=== PATIENT | male | born 1955 | race Caucasian/White ===

== ENCOUNTER 2017-07-10 10:27 | Inpatient (IN) | payer MEDICARE ==
[~2017-07-10] VITALS: Ht 190.5 cm; Wt 120.7 kg
[~2017-07-10 10:27] MED LIST: ALBU6.7H INH; CLON0.1T PO; LEVA750T9 PO; METF1000 PO
[2017-07-10] MEDS ORDERED: RESP: ALBUTEROL 2.5 MG/IPRATROPIUM 0.5 MG NEB (PRN) NEB ×2 (13:30→17:00)
[2017-07-10] MEDS ORDERED: GLUCAGON 1 MG/ML VIAL OTHER PRN (13:30)
[2017-07-10] MEDS ORDERED: DEXTROSE 50% IN WATER 50 ML VIAL(D50) IV PUSH PRN (13:30)
[2017-07-10] MEDS ORDERED: cloNIDine HCL 0.1 MG TAB PO PRN (13:30)
[2017-07-10] MEDS ORDERED: SODIUM CHLORIDE 0.9% FLUSH 10 ML FLUSH IV FLUSH PRN (13:30)
[2017-07-10] MEDS ORDERED: LABETALOL HCL 100 MG/20 ML VIAL IV PUSH PRN (13:30)
[2017-07-10 14:00] VITALS: BP 185/105; PULSE 80; RESP 19; TEMP 98.3; O2SAT 99
[2017-07-10] MEDS: amLODIPine BESYLATE 5 MG TAB PO SCH (14:02)
[2017-07-10 15:31] LABS: TROPONIN I 0.02 NG/ML (0.02-0.05)
[2017-07-10 16:00] VITALS: BP 183/88; PULSE 80; RESP 19; TEMP 97.9; O2SAT 99
[2017-07-10 16:00] LABS: BILIRUBIN, URINE NEG (NEG); BLOOD, URINE NEG (NEG); GLUCOSE,URINE NEG (NEG); KETONE, URINE NEG (NEG); NITRITE,URINE NEG (NEG); URINE COLOR LIGHT-YELLOW (YELLW/STRAW); URINE LEUKOCYTE ESTERASE NEG (NEG)
[2017-07-10] MEDS: RESP: ALBUTEROL 2.5 MG/IPRATROPIUM 0.5 MG NEB (SCH) NEB (16:00)
[2017-07-10 16:15] VITALS: O2SAT 96
[2017-07-10] MEDS ORDERED: MORPHINE SULFATE 4 MG/ML INJ IV PUSH PRN ×2 (16:45)
[2017-07-10] MEDS ORDERED: hydrALAZINE HCL 20 MG/ML VIAL IV PUSH PRN (16:45)
--- NOTE | 2017-07-10 16:45 | HHI.HP ---
[facility] Service [facility] Primary Care Physician No Primary Care Physician Admission Diagnosis Diagnoses: Chief Complaint: Short of breath chest tightness Travel History International Travel<30 Days: No Contact w/Intl Traveler <30 Da: No History of Present Illness 62 years old man with history of hypertension diabetes mellitus coronary artery disease he has a pacer, presented to the ED complaining of worsening short of breath. In general patient is very poor historian as far as explaining his complaint, to me he denied chest pain fever or cough, however in the ED notes he reported coughing and chest tightness. Patient reported to me positive orthopnea and PND significantly he does have leg edema +1. He also complained of bloated abdomen. Patient smoked 2 cigars a day and about 16 beers a week,. He stated. He he stated few days ago he went to the urgent care due to some left back pain in his chest area chest pain goes to the back which he thought it is pneumonia because he had a in the past. Patient was prescribed Z-Marshall and he thinks since that time his short of breath started getting worse, patient reported being compliant with no salt diet and his medication however I am not quite sure how reliable is his story. 4 days ago patient came to the ED and he was diagnosed with pneumonia and started on Levaquin nebulizer but this did not help Review of Systems All systems reviewed and was positive for what is mentioned in history of present illness otherwise negative Past Family Social History Past Medical History Cardiac rhythm disorder on pacer Hypertension Diabetes mellitus History of cardiac catheterization without stenting, Hepatitis C Past Surgical History Pacemaker Allergies: Coded Allergies: No Known Allergies (Unverified , 07/10/17) Family History Mother and father had strokes Social History He smokes 2 cigars a day and drinks 16 beers a week no drugs abuse Physical Exam Vital Signs Vital Signs Date Time Temp Pulse Resp B/P (MAP) Pulse Ox O2 Delivery O2 Flow Rate FiO2 07/10/17 16:15 96 Nasal Cannula 2.00 07/10/17 13:15 Nasal Cannula 2.00 Physical Exam GENERAL: This is a well-nourished, well-developed patient, in no apparent distress. SKIN: No rashes, warm and dry HEAD: Atraumatic. Normocephalic. EYES: Pupils equal round and reactive. Extraocular motions intact. No scleral icterus. ENT: Nose without bleeding, or drainage, Airway patent. NECK: Trachea midline. Supple CARDIOVASCULAR: Regular rate and rhythm without murmurs, gallops, or rubs. RESPIRATORY: Bibasilar crackles with minimal wheezing GASTROINTESTINAL: Abdomen soft, non-tender, nondistended. Positive bowel sounds MUSCULOSKELETAL: Extremities without clubbing, cyanosis, +1 edema. Pedal pulses appreciated NEUROLOGICAL: Awake and alert. Moves all extremity. Normal speech.no focal neurological deficit Laboratory Laboratory Tests Test 07/10/17 14:49 07/10/17 15:05 Total Creatine Kinase 174 Troponin I 0.02 Urine Color LIGHT-YELLOW Urine Turbidity CLEAR Urine pH 7.0 Urine Specific [place] 1.006 Urine Protein NEG Urine Glucose (UA) NEG Urine Ketones NEG Urine Occult Blood NEG Urine Nitrite NEG Urine Bilirubin NEG Urine Urobilinogen LESS THAN 2.0 Urine Leukocyte Esterase NEG Microscopic Urinalysis Comment CULT NOT INDICATED Imaging Chest x-ray showed bibasilar prominence interstitial lung edema without infiltrate Caprini VTE Risk Assessment Caprini VTE Risk Assessment: Mod/High Risk (score >= 2) Caprini Risk Assessment Model Point Value = 1 Point Value = 2 Point Value = 3 Point Value = 5 Age 41-60 Minor surgery BMI > 25 kg/m2 Swollen legs Varicose veins or History of unexplained or recurrent spontaneous Oral contraceptives or hormone replacement Sepsis (< 1 month) Serious lung disease, including pneumonia (< 1 month) Abnormal pulmonary function Acute myocardial infarction Congestive heart failure (< 1 month) History of inflammatory bowel disease Medical patient at bed rest Age 61-74 Arthroscopic surgery Major open surgery (> 45 min) Laparoscopic surgery (> 45 min) Malignancy Confined to bed (> 72 hours) Immobilizing plaster cast Central venous access Age >= 75 History of VTE Family history of VTE Factor V Leiden Prothrombin [id number] Lupus anticoagulant Anticardiolipin antibodies Elevated serum homocysteine Heparin-induced thrombocytopenia Other congenital or acquired thrombophilia Stroke (< 1 month) Elective arthroplasty Hip, pelvis, or leg fracture Acute spinal cord injury (< 1 month) Prophylaxis Regimen Total Risk Factor Score Risk Level Prophylaxis Regimen 0-1 Low Early ambulation 2 Moderate Order ONE of the following: *Sequential Compression Device (SCD) *Heparin 5000 units SQ BID 3-4 Higher Order ONE of the following medications: *Heparin 5000 units SQ TID *Enoxaparin/Lovenox 40 mg SQ daily (WT < 150 kg, CrCl > 30 mL/min) *Enoxaparin/Lovenox 30 mg SQ daily (WT < 150 kg, CrCl > 10-29 mL/min) *Enoxaparin/Lovenox 30 mg SQ BID (WT < 150 kg, CrCl > 30 mL/min) AND/OR *Sequential Compression Device (SCD) 5 or more Highest Order ONE of the following medications: *Heparin 5000 units SQ TID (Preferred with Epidurals) *Enoxaparin/Lovenox 40 mg SQ daily (WT < 150 kg, CrCl > 30 mL/min) *Enoxaparin/Lovenox 30 mg SQ daily (WT < 150 kg, CrCl > 10-29 mL/min) *Enoxaparin/Lovenox 30 mg SQ BID (WT < 150 kg, CrCl > 30 mL/min) AND *Sequential Compression Device (SCD) Assessment and Plan Assessment and Plan 62 years old male admitted with Hypertensive emergency 214/113 Flash pulmonary edema Signs of congestive heart failure, with lung edema and thick swelling History of hypertension uncontrolled Diabetes mellitus type 2 GERTRUDE with creatinine 1.4, Elevated BNP 324 Thrombocytopenia DVT prophylaxis Plan: Admit to telemetry floor inpatient First set of cardiac enzyme negative personally reviewed by me continue cycling another 2 sets EKG reviewed by me "paced rhythm "repeat EKG with any chest pain Patient was given nitroglycerin in ED, will place on Vasotec and add hydralazine , labetalol IV as needed, clonidine p.o. as needed to keep blood pressure under 170/100, goal is to decrease blood pressure 25% over 24 hours hours, last one per the nurse 183/85 02, DuoNeb, morphine Monitor FRED and daily awaiting repeat BMP in a.m. avoid nephrotoxin Lasix IV twice daily, 2D echo Accu-Chek with insulin sliding scale, diabetic diet Consider cardiology consultation for ischemic workup depending on 2D echo Heparin for DVT prophylaxis Discussed Condition With Patient in ED physician Physician Certification 2 Midnight Certification Type: Admission for Inpatient Services Order for Inpatient Services The services are ordered in accordance with Medicare regulations or non- Medicare payer requirements, as applicable. In the case of services not specified as inpatient-only, they are appropriately provided as inpatient services in accordance with the 2-midnight benchmark. Estimated LOS (days): 2 days is the estimated time the patient will need to remain in the hospital, assuming treatment plan goals are met and no additional complications. Post-Hospital Plan: Not yet determined Black Duque MD July 10, 2017 16:45
[2017-07-10] MEDS: INSULIN ASPART SUPPLEMENTAL SCALE SQ SCH ×2 (17:00→20:54)
[2017-07-10] MEDS ORDERED: ACETAMINOPHEN 325 MG TAB PO PRN (17:15)
[2017-07-10] MEDS: FUROSEMIDE 40 MG/4 ML VIAL IV PUSH SCH (17:16)
[2017-07-10 18:00] VITALS: PULSE 80
[2017-07-10 20:00] VITALS: BP 152/83; PULSE 80; RESP 18; TEMP 98; O2SAT 96
[2017-07-10] MEDS ORDERED: RESP: ALBUTEROL 2.5 MG/IPRATROPIUM 0.5 MG NEB (SCH) NEB (20:00)
[2017-07-10 20:46] LABS: TROPONIN I LESS THAN 0.02 NG/ML (0.02-0.05)
[2017-07-10] MEDS: SODIUM CHLORIDE 0.9% FLUSH 10 ML FLUSH IV FLUSH SCH (20:53)
[2017-07-11] VITALS (8 sets, daily range): BP systolic 140–158; BP diastolic 78–96; PULSE 79–84; RESP 18–19; TEMP 97.4–97.8; O2SAT 93–98
[2017-07-11] MEDS ORDERED: ACETAMINOPHEN 325 MG TAB PO ONE (01:15)
[2017-07-11 05:20] LABS: BASOPHIL % 0.6 % (0.0-2.0); EOSINOPHIL # 0.1 TH/MM3 (0-0.4); EOSINOPHIL % 1.6 % (0.0-4.0); HEMOGLOBIN 15.2 GM/DL (13.0-17.0); LYMPH % 22.9 % (9.0-44.0); LYMPHOCYTE # 1.4 TH/MM3 (1.0-4.8); MEAN CORPUSCULAR HEMOGLOBIN 31.4 PG (27.0-34.0); MEAN CORPUSCULAR HGB CONC 34.5 % (32.0-36.0); MONO % 10.4 % (0.0-8.0); MONOCYTE # 0.7 TH/MM3 (0-0.9); NEUT % 64.5 % (16.0-70.0); PLATELET COUNT 154 TH/MM3 (150-450); RED BLOOD COUNT 4.83 MIL/MM3 (4.50-5.90); RED CELL DISTRIBUTION WIDTH 13.5 % (11.6-17.2); WHITE BLOOD COUNT 6.3 TH/MM3 (4.0-11.0)
[2017-07-11 05:46] LABS: BICARBONATE 27.7 MEQ/L (21.0-32.0); CALCIUM 8.8 MG/DL (8.5-10.1); CREATININE 1.32 MG/DL (0.60-1.30)
[2017-07-11 05:48] LABS: HDL CHOLESTEROL 52.3 MG/DL (40.0-60.0)
[2017-07-11] MEDS: RESP: ALBUTEROL 2.5 MG/IPRATROPIUM 0.5 MG NEB (SCH) NEB (07:41)
[2017-07-11] MEDS: INSULIN ASPART SUPPLEMENTAL SCALE SQ SCH ×4 (08:00→20:54)
[2017-07-11] MEDS: ASPIRIN 325 MG TAB PO SCH (09:52)
[2017-07-11] MEDS: amLODIPine BESYLATE 5 MG TAB PO SCH (09:52)
[2017-07-11] MEDS: SODIUM CHLORIDE 0.9% FLUSH 10 ML FLUSH IV FLUSH SCH ×2 (09:53→20:53)
[2017-07-11] MEDS: FUROSEMIDE 40 MG/4 ML VIAL IV PUSH SCH ×2 (09:53→18:00)
--- NOTE | 2017-07-11 09:58 | HHI.PR ---
Subjective Remarks in no acute distress. sob has improved. no chest pain. overall feeling better today. Objective Vitals Vital Signs Date Time Temp Pulse Resp B/P (MAP) Pulse Ox O2 Delivery O2 Flow Rate FiO2 07/11/17 07:44 94 Nasal Cannula 2.00 07/11/17 04:00 80 07/11/17 04:00 97.8 81 18 153/82 (105) 96 07/11/17 00:00 97.8 84 18 141/84 (103) 98 07/11/17 00:00 80 07/10/17 20:00 80 07/10/17 20:00 98.0 80 18 152/83 (106) 96 07/10/17 20:00 Nasal Cannula 2.00 07/10/17 18:00 80 07/10/17 16:15 96 Nasal Cannula 2.00 07/10/17 16:00 97.9 80 19 183/88 (119) 99 07/10/17 14:00 98.3 80 19 185/105 (131) 99 07/10/17 13:15 Nasal Cannula 2.00 I/O 07/10/17 07/10/17 07/10/17 07/11/17 07/11/17 07/11/17 07:00 15:00 23:00 07:00 15:00 23:00 Intake Total 480 ml 360 ml Output Total 1550 ml Balance 480 ml -1190 ml Intake Oral 480 ml 360 ml Output Urine Total 1550 ml # Voids 2 # Bowel Movements 0 0 Result Diagram: 07/11/17 0450 07/11/17 0450 Objective Remarks GENERAL: This is a well-nourished, well-developed patient, in no apparent distress. CARDIOVASCULAR: Regular rate and regular rhythm without murmurs, gallops, or rubs. RESPIRATORY: Clear to auscultation. Breath sounds equal bilaterally. No wheezes , rales, or rhonchi. GASTROINTESTINAL: Abdomen soft, non-tender, nondistended. Normal, active bowel sounds MUSCULOSKELETAL: Extremities with mild bilateral pedal edema. NEURO: Alert & Oriented x4 to person, place, time, situation. Moves all ext x4 Medications and IVs Inpatient Medications Acetaminophen (Tylenol) 650 mg ONCE ONCE PO Last administered on 07/11/17at 01: 38; Start 07/11/17 at 01:15; Stop 07/11/17 at 01:16; Status DC Albuterol/ Ipratropium (Duoneb Neb) 1 ampule Q2HR NEB PRN NEB short of breath; Start 07/10/17 at 17:00 Amlodipine Besylate (Norvasc) 5 mg DAILY PO Last administered on 07/10/17at 14: 02; Start 07/10/17 at 13:45 Aspirin (Aspirin) 325 mg DAILY PO ; Start 07/11/17 at 09:00 Clonidine (Catapres) 0.1 mg Q6H PRN PO SEE LABEL COMMENTS Last administered on 07/10/17at 15:55; Start 07/10/17 at 13:30 Dextrose (D50w (Vial) Inj) 50 ml UNSCH PRN IV PUSH HYPOGLYCEMIA-SEE COMMENTS; Start 07/10/17 at 13:30 Furosemide (Lasix Inj) 40 mg BID@,18 IV PUSH Last administered on 07/10/17at 17:16; Start 07/10/17 at 18:00 Glucagon (Glucagon Inj) 1 mg UNSCH PRN OTHER HYPOGLYCEMIA-SEE COMMENTS; Start 07/10/17 at 13:30 Hydralazine HCl (Apresoline Inj) 10 mg Q6H PRN IV PUSH bp>170/100; Start at 16:45 Insulin Aspart (NovoLOG SUPPLEMENTAL SCALE) 1 ACHS SLIDING SCALE SQ ; Start at 17:00 Labetalol HCl (Trandate Inj) 10 mg Q6H PRN IV PUSH SEE LABEL COMMENTS; Start at 13:30 Morphine Sulfate (Morphine Inj) 2 mg Q4H PRN IV PUSH pain 3-5 Last administered on 07/10/17at 17:32; Start 07/10/17 at 16:45 Sodium Chloride (NS Flush) 2 ml BID IV FLUSH Last administered on 07/10/17at 20: 53; Start 07/10/17 at 21:00 A/P Assessment and Plan A/P Hypertensive emergency 214/113/ Flash pulmonary edema BP has much improved- increase Amlodipine and Lasix- neb treatment as needed- echo pending. Diabetes mellitus type 2- accu-check/ SSI GERTRUDE- will monitor. Discharge Planning dc home tomorrow if BP stable-pending echo. Murphy Martini MD July 11, 2017 09:58
[2017-07-11] MEDS ORDERED: MAGNESIUM HYDROXIDE SUSP 30 ML CUP PO PRN (14:45)
[2017-07-11] MEDS: RESP: ALBUTEROL 2.5 MG/IPRATROPIUM 0.5 MG NEB (PRN) NEB (21:53)
[2017-07-12] VITALS (9 sets, daily range): BP systolic 104–152; BP diastolic 58–94; PULSE 63–93; RESP 17–20; TEMP 96.8–98.8; O2SAT 95–100
[2017-07-12] MEDS: INSULIN ASPART SUPPLEMENTAL SCALE SQ SCH ×3 (08:00→17:00)
[2017-07-12] MEDS: RESP: ALBUTEROL 2.5 MG/IPRATROPIUM 0.5 MG NEB (PRN) NEB ×2 (08:32→16:26)
[2017-07-12] MEDS: FUROSEMIDE 40 MG/4 ML VIAL IV PUSH SCH ×2 (09:07→17:38)
[2017-07-12] MEDS: ASPIRIN 325 MG TAB PO SCH (09:09)
[2017-07-12] MEDS: SODIUM CHLORIDE 0.9% FLUSH 10 ML FLUSH IV FLUSH SCH (09:09)
--- NOTE | 2017-07-12 10:35 | HHI.PR ---
Subjective Remarks in no acute distress. overall doing better. sob and leg swelling has improved. no new complaints. Objective Vitals Vital Signs Date Time Temp Pulse Resp B/P (MAP) Pulse Ox O2 Delivery O2 Flow Rate FiO2 07/12/17 08:34 97 21 07/12/17 08:00 Room Air 2.00 07/12/17 08:00 80 07/12/17 08:00 97.3 80 18 141/87 (105) 95 07/12/17 07:54 98.0 67 20 108/61 (77) 98 07/12/17 04:00 97.8 78 18 138/77 (97) 98 07/12/17 04:00 79 07/12/17 04:00 Room Air 07/12/17 00:00 Room Air 07/12/17 00:00 79 07/12/17 00:00 97.4 80 17 152/94 (113) 96 07/11/17 20:00 Nasal Cannula 2.00 07/11/17 20:00 79 07/11/17 20:00 97.4 80 19 140/78 (98) 93 07/11/17 16:01 97.6 80 18 158/96 (116) 97 07/11/17 15:00 80 07/11/17 12:01 97.4 80 18 148/83 (104) 95 I/O 07/11/17 07/11/17 07/11/17 07/12/17 07/12/17 07/12/17 07:00 15:00 23:00 07:00 15:00 23:00 Intake Total 360 ml 420 ml 240 ml Output Total 1550 ml Balance -1190 ml 420 ml 240 ml Intake Oral 360 ml 420 ml 240 ml Output Urine Total 1550 ml # Voids 8 4 # Bowel Movements 0 1 0 Result Diagram: 07/11/17 0450 07/11/17 0450 Objective Remarks GENERAL: This is a well-nourished, well-developed patient, in no apparent distress. CARDIOVASCULAR: Regular rate and regular rhythm without murmurs, gallops, or rubs. RESPIRATORY: Clear to auscultation. Breath sounds equal bilaterally. No wheezes , rales, or rhonchi. GASTROINTESTINAL: Abdomen soft, non-tender, nondistended. Normal, active bowel sounds MUSCULOSKELETAL: Extremities with mild bilateral pedal edema. NEURO: Alert & Oriented x4 to person, place, time, situation. Moves all ext x4 Medications and IVs Inpatient Medications Acetaminophen (Tylenol) 650 mg ONCE ONCE PO Last administered on 07/11/17at 01: 38; Start 07/11/17 at 01:15; Stop 07/11/17 at 01:16; Status DC Albuterol/ Ipratropium (Duoneb Neb) 1 ampule QID NEB PRN NEB SHORTNESS OF BREATH Last administered on 07/12/17at 08:32; Start 07/11/17 at 10:15 Amlodipine Besylate (Norvasc) 10 mg DAILY PO Last administered on 07/12/17at 09: 10; Start 07/12/17 at 09:00 Aspirin (Aspirin) 325 mg DAILY PO Last administered on 07/12/17at 09:09; Start 07/11/17 at 09:00 Clonidine (Catapres) 0.1 mg Q6H PRN PO SEE LABEL COMMENTS Last administered on 07/10/17at 15:55; Start 07/10/17 at 13:30 Dextrose (D50w (Vial) Inj) 50 ml UNSCH PRN IV PUSH HYPOGLYCEMIA-SEE COMMENTS; Start 07/10/17 at 13:30 Furosemide (Lasix Inj) 40 mg BID@18 IV PUSH Last administered on 07/12/17at 09:07; Start 07/10/17 at 18:00 Glucagon (Glucagon Inj) 1 mg UNSCH PRN OTHER HYPOGLYCEMIA-SEE COMMENTS; Start 07/10/17 at 13:30 Hydralazine HCl (Apresoline Inj) 10 mg Q6H PRN IV PUSH bp>170/100; Start at 16:45 Insulin Aspart (NovoLOG SUPPLEMENTAL SCALE) 1 ACHS SLIDING SCALE SQ Last administered on 07/11/17at 20:54; Start 07/10/17 at 17:00 Labetalol HCl (Trandate Inj) 10 mg Q6H PRN IV PUSH SEE LABEL COMMENTS; Start at 13:30 Magnesium Hydroxide (Milk Of Magnesia Liq) 30 ml DAILY PRN PO CONSTIPATION; Start 07/11/17 at 14:45 Morphine Sulfate (Morphine Inj) 2 mg Q4H PRN IV PUSH pain 3-5 Last administered on 07/10/17at 17:32; Start 07/10/17 at 16:45 Sodium Chloride (NS Flush) 2 ml BID IV FLUSH Last administered on 07/12/17at 09: 09; Start 07/10/17 at 21:00 A/P Assessment and Plan A/P Hypertensive emergency 214/113/ Flash pulmonary edema BP has much improved- increase Amlodipine and Lasix- neb treatment as needed- echo pending. Diabetes mellitus type 2- accu-check/ SSI GERTRUDE- will monitor. Discharge Planning possible dc home today-pending echo. Murphy Martini MD July 12, 2017 10:34
[2017-07-12] MEDS ORDERED: AMLO10 PO (10:36)
[2017-07-12] MEDS ORDERED: K-TA10TA PO (10:36)
[2017-07-12] MEDS ORDERED: FURO1TAB60 PO (10:36)
--- NOTE | 2017-07-12 18:10 | MB ---
cc: Kaleb Valdez MD, Arthur W MD DATE: 07/12/2017 HISTORY OF PRESENT ILLNESS: Sanju is a very pleasant 62-year-old gentleman with history of a pacemaker, tobacco use, diabetes. He is followed at the [facility]. He lives in [place], but he is scheduled to fly back to [place] tomorrow. He presented with an episode of severe shortness of breath on 07/10/2017, completely resolved after treatment with steroids. He is noted to be a poor historian. He denies coronary artery disease. However, per the chart he does have coronary artery disease. He is noted to have orthopnea and PND, 1+ lower extremity edema, feeling bloated. He has recently been given a Z-Marshall, has been recently diagnosed with pneumonia. PAST MEDICAL HISTORY: Per history of present illness. He also has a history of hypertension, hepatitis C. ALLERGIES: NONE. SOCIAL HISTORY: Smokes 2 cigars a day, drinks 16 beers a week. MEDICATIONS IN THE HOSPITAL: 1. Amlodipine 10 mg daily. 2. Aspirin 325 daily. 3. Furosemide 40 mg IV b.i.d. PHYSICAL EXAMINATION: VITAL SIGNS: Blood pressure 118/77, pulse 93, respiratory rate 20, temperature 96.8. Sats are 100% on room air. GENERAL: He is alert and oriented x 3, in no acute distress. NECK: Supple. No JVD. No bruit. HEART: S1, S2. No murmurs, rubs or gallops. LUNGS: Clear to auscultation bilaterally. ABDOMEN: Soft, nontender, nondistended with positive bowel sounds. EXTREMITIES: No lower extremity edema. IMAGING STUDIES: CT of the chest on 07/06/2017 shows negative for pulmonary embolus, cardiomegaly with small bilateral effusions suggestive of congestive heart failure, single punctate gallstones within the gallbladder. Chest x-ray shows increasing interstitial prominence in both lungs, without focal areas of consolidation, stable cardiomegaly. CARDIOLOGY STUDIES: EKG 07/10/2017 shows a paced ventricular rhythm, indeterminate atrial rhythm. LABORATORY DATA: White count 6.3, hemoglobin 15.2, hematocrit 44.0, platelet count 154. Troponin less than 0.02 x2. LDL is 87. Sodium 141, potassium 3.8, chloride 103, bicarbonate 27.7, BUN 16, creatinine 1.32, glucose 135. BNP on 07/10/2017 was 324. DIAGNOSES: 1. Coronary artery disease. 2. Decompensated congestive heart failure. 3. Cardiomegaly. 4. Permanent pacemaker. 5. Diabetes mellitus. 6. Tobacco abuse. 7. Hyperglycemia. 8. Acute renal failure. 9. Chronic renal insufficiency. 10. Elevated liver enzymes. 11. Hepatitis C. DISCUSSION: I have explained to the patient and his daughter that he is high risk to leave the hospital now, that he needs further cardiac evaluation including followup of his echo and stress test and/or left heart catheterization. This is in the presence of the charge nurse, Farideh, and other [facility] staff. The daughter is the power of commercial real estate attorney. She understands that if they leave it would have to be against medical advice. Otherwise, recommend follow up BMP in the a.m. Based on the level of the BMP and the echo results, we will be able to further risk stratify. MD ROSEMARIE Pedraza/ , 05:31 PM , 06:09 PM
--- NOTE | 2017-07-13 15:33 | ECHRPT ---
Indication: Essential (primary) hypertension CONCLUSIONS The left ventricular systolic function is mildly reduced with an estimated ejection fraction in the range of 45- 50%. the apex appears severely hypokinetic Wall thickness is normal. Normal left ventricular size. There is trace tricuspid valve regurgitation. The estimated pulmonary arterial pressure is 24.4 mmHg. BP: 143 / 85 HR: 80 Rhythm: Sinus MEASUREMENTS (Male / Female) Normal Values Technical Quality:Fair 2D ECHO LV Diastolic Diameter PLAX 4.0 cm 4.2 - 5.9 / 3.9 - 5.3 cm LV Systolic Diameter PLAX 3.1 cm IVS Diastolic Thickness 1.2 cm 0.6 - 1.0 / 0.6 - 0.9 cm LVPW Diastolic Thickness 1.2 cm 0.6 - 1.0 / 0.6 - 0.9 cm LV Relative Wall Thickness 0.6 LVOT Diameter 2.2 cm M-MODE Aortic Root Diameter MM 3.1 cm LA Systolic Diameter MM 4.4 cm LA Ao Ratio MM 1.4 AV Cusp Separation MM 1.9 cm DOPPLER AV Peak Velocity 111.0 cm/s AV Peak Gradient 4.9 mmHg LVOT Peak Velocity 79.5 cm/s LVOT Peak Gradient 2.5 mmHg AV Area Cont Eq pk 2.7 cm Mitral E Point Velocity 76.0 cm/s Mitral A Point Velocity 48.4 cm/s Mitral E to A Ratio 1.6 LV E' Lateral Velocity 8.0 cm/s Mitral E to LV E' Lateral Ratio 9.5 LV E' Septal Velocity 5.7 cm/s Mitral E to LV E' Septal Ratio 13.5 TR Peak Velocity 190.0 cm/s TR Peak Gradient 14.4 mmHg Right Atrial Pressure 10.0 mmHg Pulmonary Artery Systolic Pressu 24.4 mmHg Right Ventricular Systolic Press 24.4 mmHg PV Peak Velocity 82.8 cm/s PV Peak Gradient 2.7 mmHg FINDINGS LEFT VENTRICLE The left ventricular systolic function is mildly reduced with an estimated ejection fraction in the range of 45- 50%. Wall thickness is normal. Normal left ventricular size. RIGHT VENTRICLE Normal right ventricular size and systolic function. LEFT ATRIUM The left atrial size is normal. RIGHT ATRIUM The right atrial size is normal. ATRIAL SEPTUM Normal atrial septal thickness without atrial level shunting by limited color doppler interrogation. AORTA The aortic root and proximal ascending aorta are normal in size on limited imaging. MITRAL VALVE Structurally normal mitral valve. No mitral valve stenosis or regurgitation. AORTIC VALVE Trileaflet aortic valve. No aortic valve stenosis or regurgitation. TRICUSPID VALVE There is trace tricuspid valve regurgitation. The estimated pulmonary arterial pressure is 24.4 mmHg. PULMONARY VALVE No pulmonary valve regurgitation or stenosis. VESSELS The inferior vena cava is normal in size. PERICARDIUM No pericardial effusion. Kaleb Valdez MD, FACC, [facility] Edited by: exchange administrator exchange administrator (Electronically Signed) Final Date:12 Jul 2017 13:12 Amended: 13 Jul 2017 15:32
== END 2017-07-12 19:00 | disposition left against medical advice (07) | DRG 292 ==
LOC: NEDDLT 12:52 → N04B 13:02
PROVIDERS: ADMIT Internal Medicine; ATTEND Internal Medicine
DX: I13.0 Hypertensive heart and chronic kidney disease with heart failure and stage 1 through stage 4 chronic kidney disease, or unspecified chronic kidney disease (principal); I16.1 Hypertensive emergency; N17.9 Acute kidney failure, unspecified; E11.22 Type 2 diabetes mellitus with diabetic chronic kidney disease; E11.65 Type 2 diabetes mellitus with hyperglycemia; D69.6 Thrombocytopenia, unspecified; I50.9 Heart failure, unspecified; N18.9 Chronic kidney disease, unspecified; I25.10 Atherosclerotic heart disease of native coronary artery without angina pectoris; F17.290 Nicotine dependence, other tobacco product, uncomplicated; Z86.19 Personal history of other infectious and parasitic diseases; Z95.0 Presence of cardiac pacemaker
CPT/HCPCS: 80048; 80061; 81001; 82043; 82550; 82552; 82948; 84484; 85025; 93306; 94640; J1815; J1940; J2270

== ENCOUNTER 2017-10-06 19:10 | Observation (INO) ==
--- NOTE | 2017-10-06 19:37 | ED ---
HPI General Chief Complaint: Chest Pain Stated Complaint: Cardiac Time Seen by Provider: 10/06/17 19:21 Source: patient and EMS Mode of arrival: EMS History of Present Illness HPI narrative: The patient is a 62-year-old male with hypertension, permanent pacemaker and diabetes that was working out in the heat all day and had a left- sided chest pain and a syncopal episode. He said he felt himself getting faint so try to ease himself on the floor but collapsed. Unknown how long he was unconscious for. There was no seizure-like activity. Patient at the time of arrival in the emergency department did not have any chest pain. Not short of breath. MD complaint: chest pain Complete Quality Measures for STEMI Alert Patients STEMI Alert: No Onset (ago): minute(s) (30) Duration: now resolved Onset: during exertion Pain location: left chest Severity: severe Pain radiation: none Relieving factors: rest Exacerbating factors: exertion Associated symptoms: dyspnea and syncope Treatments prior to arrival chest pain: none Related Data Home Medications Medication Instructions Recorded Confirmed clonidine HCl 0.1 mg PO DAILY 10/06/17 10/06/17 dabigatran etexilate [Pradaxa] 75 mg PO BID 10/06/17 10/06/17 furosemide [Lasix] 20 mg PO DAILY 10/06/17 10/06/17 metformin 1,000 mg PO BID 10/06/17 10/06/17 valsartan 160 mg PO DAILY 10/06/17 10/06/17 Allergies Allergy/AdvReac Type Severity Reaction Status Date / Time No Known Allergies Allergy Verified 10/06/17 19:24 Review of Systems ROS: all other systems reviewed are negative Cardiovascular Reports chest pain, Reports chest pain with activity, Reports syncope and Reports dyspnea on exertion Respiratory Reports as per HPI Musculoskeletal Comments: Abrasion and swelling below the left knee. Integumentary/Breasts Comments: Abrasion below the left knee Neurologic Denies confusion, Denies vertigo, Reports dizziness, Denies headache(s), Denies focal weakness, Denies loss of vision, Denies numbness, Denies other visual disturbances, Denies convulsions, Denies tingling and Denies paresthesias [facility] Medical History Medical History Hx of cardiac pacemaker (Acute) Hypertension (Acute) Surgical History Surgical History No history of previous surgery (Acute) Social History Social History Substance History: No History of Abuse Second Hand Smoke Exposure: No Smoking Status: Current every day smoker Tobacco Type: Cigars How Often Do You Have a Drink Containing Alcohol: 4 or more times a week Recent Travel in [facility] within the Last 8 Weeks: No Recent Out of Country Travel within the Last 8 Weeks: No Immunization History Tetanus Immunization: <5 Years Exam Narrative Exam Narrative: GENERAL: Alert and oriented in no distress SKIN: Focused skin assessment warm/dry. Small abrasion below the left knee HEAD: Atraumatic. Normocephalic. EYES: Pupils equal and round. No scleral icterus. No injection or drainage. ENT: No nasal bleeding or discharge. Mucous membranes pink and moist. NECK: Trachea midline. No JVD. CARDIOVASCULAR: Regular rate and rhythm. No murmur appreciated. RESPIRATORY: No accessory muscle use. Clear to auscultation. Breath sounds equal bilaterally. GASTROINTESTINAL: Abdomen soft, non-tender, nondistended. Hepatic and splenic margins not palpable. MUSCULOSKELETAL: No obvious deformities. No clubbing. No cyanosis. No edema. NEUROLOGICAL: Awake and alert. No obvious cranial nerve deficits. Motor grossly within normal limits. Normal speech. Soft tissue swelling tenderness to palpation below the left knee. Range of motion intact. Anterior posterior drawer test unremarkable PSYCHIATRIC: Appropriate mood and affect; insight and judgment normal. Course Hospital Course: She will workup has been unremarkable he does have an elevated CK-MB with a normal troponin. CK within normal limits. Head CT knee x-ray and chest x-ray were obtained and were unremarkable. Patient has been pain-free while in the emergency department with normal stable vitals. Reevaluation(s) Reevaluation #1: Jeremiah comfortably no distress. No chest pain or shortness of breath. Reports muscle aches. Time: 21:18 Initial Documented Vital Signs Pulse Rate 80 10/06/17 19:14 Respiratory Rate 20 10/06/17 19:14 Blood Pressure 139/68 10/06/17 19:14 Pulse Oximetry 94 L 10/06/17 19:14 Last Documented Vital Signs Temperature 97.6 F 10/07/17 11:56 Pulse Rate 80 10/07/17 11:56 Respiratory Rate 16 10/07/17 11:56 Blood Pressure 165/87 H 10/07/17 11:56 Pulse Oximetry 97 10/07/17 11:56 Medical Decision Making MDM Narrative Medical Screen Exam Complete: Yes Emergency Medical Condition: Yes Lab Data Result diagrams: 10/07/17 05:55 10/07/17 05:55 Lab Results 10/06/17 10/06/17 10/06/17 Range/Units 19:29 19:29 19:29 WBC 5.9 (4.0-11.0) th/mm3 RBC 4.37 L (4.50-5.90) mil/mm3 Hgb 13.6 (13.0-17.0) gm/dL Hct 40.7 (39.0-51.0) % MCV 93.2 (80.0-100.0) fL MCH 31.0 (27.0-34.0) pg MCHC 33.3 (32.0-36.0) % RDW 13.9 (11.6-17.2) % Plt Count 148 L (150-450) th/mm3 MPV 8.3 (7.0-11.0) fL Neut % (Auto) 55.0 (16.0-70.0) % Lymph % (Auto) 32.6 (9.0-44.0) % York % (Auto) 10.5 H (0.0-8.0) % Eos % (Auto) 1.1 (0.0-4.0) % Baso % (Auto) 0.8 (0.0-2.0) % Neut # (Auto) 3.2 (1.8-7.7) th/mm3 Lymph # (Auto) 1.9 (1.0-4.8) th/mm3 York # (Auto) 0.6 (0.0-0.9) th/mm3 Eos # (Auto) 0.1 (0.0-0.4) th/mm3 Baso # (Auto) 0.0 (0.0-0.2) th/mm3 WBC Differential . Differential Comment Auto diff final PT 10.4 (9.8-11.6) sec INR 1.0 Ratio APTT 23.0 L (24.3-30.1) sec D-Dimer Quant (PE/DVT) 0.31 (0.00-0.50) mg/L FEU Sodium 140 (136-145) meq/L Potassium 3.7 (3.5-5.1) meq/L Chloride 106 (98-107) meq/L Carbon Dioxide 24.9 (21.0-32.0) meq/L Anion Gap 9 (5-15) meq/L BUN 16 (7-18) mg/dL Creatinine 1.57 H (0.60-1.30) mg/dL Estimated GFR 45 L (>89) mL/min POC Glucose (68-110) mg/dl Random Glucose 224 H (74-106) mg/dL Calcium 8.6 (8.5-10.1) mg/dL Magnesium 1.9 (1.5-2.5) mg/dL Total Bilirubin 0.5 (0.2-1.0) mg/dL AST 35 (15-37) U/L ALT 55 (12-78) U/L Alkaline Phosphatase 56 (45-117) U/L Troponin I Less than 0.02 L (0.02-0.05) ng/mL B-Natriuretic Peptide (0-100) pg/mL Total Protein 6.9 (6.4-8.2) g/dL Albumin 3.6 (3.4-5.0) g/dL Urine Color (Yellw/Straw) Urine Clarity (Clear) Urine pH (5.0-8.5) Ur Specific Buchanan (1.002-1.035) Urine Protein (Neg-Trace) mg/dL Urine Glucose (UA) (Negative) mg/dL Urine Ketones (Negative) mg/dL Urine Occult Blood (Negative) Urine Nitrate (Negative) Urine Bilirubin (Negative) Urine Urobilinogen (Less than 2) mg/dL Ur Leukocyte Esterase (Negative) Urine WBC (0-5) /hpf Urine Mucus (Occasional) /lpf Micro UA Comment Urine Culture Comments 10/06/17 10/06/17 10/07/17 Range/Units 19:29 23:31 00:57 WBC (4.0-11.0) th/mm3 RBC (4.50-5.90) mil/mm3 Hgb (13.0-17.0) gm/dL Hct (39.0-51.0) % MCV (80.0-100.0) fL MCH (27.0-34.0) pg MCHC (32.0-36.0) % RDW (11.6-17.2) % Plt Count (150-450) th/mm3 MPV (7.0-11.0) fL Neut % (Auto) (16.0-70.0) % Lymph % (Auto) (9.0-44.0) % York % (Auto) (0.0-8.0) % Eos % (Auto) (0.0-4.0) % Baso % (Auto) (0.0-2.0) % Neut # (Auto) (1.8-7.7) th/mm3 Lymph # (Auto) (1.0-4.8) th/mm3 York # (Auto) (0.0-0.9) th/mm3 Eos # (Auto) (0.0-0.4) th/mm3 Baso # (Auto) (0.0-0.2) th/mm3 WBC Differential Differential Comment PT (9.8-11.6) sec INR Ratio APTT (24.3-30.1) sec D-Dimer Quant (PE/DVT) (0.00-0.50) mg/L FEU Sodium (136-145) meq/L Potassium (3.5-5.1) meq/L Chloride (98-107) meq/L Carbon Dioxide (21.0-32.0) meq/L Anion Gap (5-15) meq/L BUN (7-18) mg/dL Creatinine (0.60-1.30) mg/dL Estimated GFR (>89) mL/min POC Glucose 233 H (68-110) mg/dl Random Glucose (74-106) mg/dL Calcium (8.5-10.1) mg/dL Magnesium (1.5-2.5) mg/dL Total Bilirubin (0.2-1.0) mg/dL AST (15-37) U/L ALT (12-78) U/L Alkaline Phosphatase (45-117) U/L Troponin I Less than 0.02 L (0.02-0.05) ng/mL B-Natriuretic Peptide 97 (0-100) pg/mL Total Protein (6.4-8.2) g/dL Albumin (3.4-5.0) g/dL Urine Color (Yellw/Straw) Urine Clarity (Clear) Urine pH (5.0-8.5) Ur Specific Buchanan (1.002-1.035) Urine Protein (Neg-Trace) mg/dL Urine Glucose (UA) (Negative) mg/dL Urine Ketones (Negative) mg/dL Urine Occult Blood (Negative) Urine Nitrate (Negative) Urine Bilirubin (Negative) Urine Urobilinogen (Less than 2) mg/dL Ur Leukocyte Esterase (Negative) Urine WBC (0-5) /hpf Urine Mucus (Occasional) /lpf Micro UA Comment Urine Culture Comments 10/07/17 10/07/17 10/07/17 Range/Units 01:52 05:55 05:55 WBC 5.6 (4.0-11.0) th/mm3 RBC 4.31 L (4.50-5.90) mil/mm3 Hgb 13.5 (13.0-17.0) gm/dL Hct 40.1 (39.0-51.0) % MCV 93.1 (80.0-100.0) fL MCH 31.4 (27.0-34.0) pg MCHC 33.7 (32.0-36.0) % RDW 13.7 (11.6-17.2) % Plt Count 127 L (150-450) th/mm3 MPV 8.2 (7.0-11.0) fL Neut % (Auto) 57.8 (16.0-70.0) % Lymph % (Auto) 31.4 (9.0-44.0) % York % (Auto) 9.4 H (0.0-8.0) % Eos % (Auto) 0.8 (0.0-4.0) % Baso % (Auto) 0.6 (0.0-2.0) % Neut # (Auto) 3.3 (1.8-7.7) th/mm3 Lymph # (Auto) 1.8 (1.0-4.8) th/mm3 York # (Auto) 0.5 (0.0-0.9) th/mm3 Eos # (Auto) 0.0 (0.0-0.4) th/mm3 Baso # (Auto) 0.0 (0.0-0.2) th/mm3 WBC Differential . Differential Comment Auto diff final PT (9.8-11.6) sec INR Ratio APTT (24.3-30.1) sec D-Dimer Quant (PE/DVT) (0.00-0.50) mg/L FEU Sodium 141 (136-145) meq/L Potassium 4.0 (3.5-5.1) meq/L Chloride 107 (98-107) meq/L Carbon Dioxide 27.7 (21.0-32.0) meq/L Anion Gap 6 (5-15) meq/L BUN 15 (7-18) mg/dL Creatinine 1.20 (0.60-1.30) mg/dL Estimated GFR 61 L (>89) mL/min POC Glucose (68-110) mg/dl Random Glucose 104 D (74-106) mg/dL Calcium 8.8 (8.5-10.1) mg/dL Magnesium (1.5-2.5) mg/dL Total Bilirubin 0.8 (0.2-1.0) mg/dL AST 26 (15-37) U/L ALT 52 (12-78) U/L Alkaline Phosphatase 57 (45-117) U/L Troponin I (0.02-0.05) ng/mL B-Natriuretic Peptide (0-100) pg/mL Total Protein 7.0 (6.4-8.2) g/dL Albumin 3.7 (3.4-5.0) g/dL Urine Color Straw (Yellw/Straw) Urine Clarity Clear (Clear) Urine pH 6.0 (5.0-8.5) Ur Specific Buchanan 1.006 (1.002-1.035) Urine Protein Negative (Neg-Trace) mg/dL Urine Glucose (UA) 150 H (Negative) mg/dL Urine Ketones Negative (Negative) mg/dL Urine Occult Blood Negative (Negative) Urine Nitrate Negative (Negative) Urine Bilirubin Negative (Negative) Urine Urobilinogen Less than 2 (Less than 2) mg/dL Ur Leukocyte Esterase Negative (Negative) Urine WBC Less than 1 (0-5) /hpf Urine Mucus Few H (Occasional) /lpf Micro UA Comment Culture not ind Urine Culture Comments Culture not ind 10/07/17 10/07/17 10/07/17 Range/Units 05:55 07:49 11:58 WBC (4.0-11.0) th/mm3 RBC (4.50-5.90) mil/mm3 Hgb (13.0-17.0) gm/dL Hct (39.0-51.0) % MCV (80.0-100.0) fL MCH (27.0-34.0) pg MCHC (32.0-36.0) % RDW (11.6-17.2) % Plt Count (150-450) th/mm3 MPV (7.0-11.0) fL Neut % (Auto) (16.0-70.0) % Lymph % (Auto) (9.0-44.0) % York % (Auto) (0.0-8.0) % Eos % (Auto) (0.0-4.0) % Baso % (Auto) (0.0-2.0) % Neut # (Auto) (1.8-7.7) th/mm3 Lymph # (Auto) (1.0-4.8) th/mm3 York # (Auto) (0.0-0.9) th/mm3 Eos # (Auto) (0.0-0.4) th/mm3 Baso # (Auto) (0.0-0.2) th/mm3 WBC Differential Differential Comment PT (9.8-11.6) sec INR Ratio APTT (24.3-30.1) sec D-Dimer Quant (PE/DVT) (0.00-0.50) mg/L FEU Sodium (136-145) meq/L Potassium (3.5-5.1) meq/L Chloride (98-107) meq/L Carbon Dioxide (21.0-32.0) meq/L Anion Gap (5-15) meq/L BUN (7-18) mg/dL Creatinine (0.60-1.30) mg/dL Estimated GFR (>89) mL/min POC Glucose 136 H 137 H (68-110) mg/dl Random Glucose (74-106) mg/dL Calcium (8.5-10.1) mg/dL Magnesium (1.5-2.5) mg/dL Total Bilirubin (0.2-1.0) mg/dL AST (15-37) U/L ALT (12-78) U/L Alkaline Phosphatase (45-117) U/L Troponin I 0.02 (0.02-0.05) ng/mL B-Natriuretic Peptide (0-100) pg/mL Total Protein (6.4-8.2) g/dL Albumin (3.4-5.0) g/dL Urine Color (Yellw/Straw) Urine Clarity (Clear) Urine pH (5.0-8.5) Ur Specific Buchanan (1.002-1.035) Urine Protein (Neg-Trace) mg/dL Urine Glucose (UA) (Negative) mg/dL Urine Ketones (Negative) mg/dL Urine Occult Blood (Negative) Urine Nitrate (Negative) Urine Bilirubin (Negative) Urine Urobilinogen (Less than 2) mg/dL Ur Leukocyte Esterase (Negative) Urine WBC (0-5) /hpf Urine Mucus (Occasional) /lpf Micro UA Comment Urine Culture Comments Imaging Data Radiologist's impression: Chest X-Ray 10/06/17 19:26 CONCLUSION: 1. Compensated cardiomegaly. 2. No acute infiltrate. Head CT 10/06/17 19:26 CONCLUSION: 1. Mild chronic sinusitis with small retention cysts in both maxillary antra. 2. Otherwise negative. No acute intracranial process, trauma or fracture to explain current clinical symptoms. . Knee X-Ray 10/06/17 19:37 CONCLUSION: 1. Early osteoarthritic changes with some loss of the medial tibiofemoral joint space. 2. No fracture or effusion. Carotid Doppler Study 10/07/17 00:00 CONCLUSION: 1. Right Internal Carotid Artery: No significant stenosis or atherosclerotic plaque is visualized. 2. Left Internal Carotid Artery: No significant stenosis or atherosclerotic plaque is visualized. ECG Data Attestation: I personally reviewed and interpreted this ECG as follows: Interpretation: EKG obtained at 1915 on October 06 revealed electronic ventricular paced rhythm. Heart rate of 80 bpm. QRS 192 ms QTc 471 ms. No signs of acute ischemia. Discharge Plan Discharge Disposition Patient Disposition: 01 Discharge Home Discharge Condition Condition: Stable Discharge Order Discharge Orders: Discharge Order (Routine); Ordered 10/07/17 Ordered By: Tomi Paris Discharge Details Anticipated Discharge Date: 10/07/17 Physicians Team ED Provider: Maicol Carrero Primary Care Provider: Deric Nixon Attending Provider: Tomi Paris Other Providers: Maurilio Thorpe Status ED Status: Left Department Discharge Information Discharge Date/Time: 10/06/17 23:08
--- NOTE | 2017-10-06 19:50 | XR ---
EXAM DATE: 10/06/2017 7:44 PM EDT AGE/SEX: 62 years / Male INDICATIONS: Possible syncopal episode. CLINICAL DATA: This is the patient's initial encounter. Patient reports that signs and symptoms have been present for 1 day and indicates a pain score of 0/10. MEDICAL/SURGICAL HISTORY: Hypertension. Diabetes. Congestive heart failure. Afib. [place] r. COMPARISON: DL, CHEST SINGLE AP, 07/10/2017. . FINDINGS: A single AP view of the chest demonstrates a prominent but well compensated heart. Lungs are grossly clear accounting for technique. No effusions. Left subclavian bipolar pacer and osseous structures ar e all intact. CONCLUSION: 1. Compensated cardiomegaly. 2. No acute infiltrate. Electronically signed by: Luis M Candelaria MD 10/06/2017 7:48 PM EDT
--- NOTE | 2017-10-06 20:00 | XR ---
EXAM DATE: 10/06/2017 7:54 PM EDT AGE/SEX: 62 years / Male INDICATIONS: Left knee pain after fall. CLINICAL DATA: This is the patient's initial encounter. Patient reports that signs and symptoms have been present for 1 day and indicates a pain score of 8/10. MEDICAL/SURGICAL HISTORY: None. None. COMPARISON: No prior exams available for comparison. FINDINGS: Bony structures are intact and in normal alignment. Early osteoarthritic changes with some loss of th e medial tibiofemoral joint space. Soft tissues are unremarkable. No radiopaque foreign bodies seen . CONCLUSION: 1. Early osteoarthritic changes with some loss of the medial tibiofemoral joint space. 2. No fracture or effusion. Electronically signed by: Luis M Candelaria MD 10/06/2017 7:59 PM EDT
[2017-10-06 20:06] LABS: Baso % (Auto) 0.8 % (0.0-2.0); Eos # (Auto) 0.1 th/mm3 (0.0-0.4); Eos % (Auto) 1.1 % (0.0-4.0); Hematocrit 40.7 % (39.0-51.0); Hemoglobin 13.6 gm/dL (13.0-17.0); Lymph # (Auto) 1.9 th/mm3 (1.0-4.8); Lymph % (Auto) 32.6 % (9.0-44.0); Mean Corpuscular HGB Conc 33.3 % (32.0-36.0); Mean Corpuscular Volume 93.2 fL (80.0-100.0); Mean Platelet Volume 8.3 fL (7.0-11.0); Mono # (Auto) 0.6 th/mm3 (0.0-0.9); Mono % (Auto) 10.5 % (0.0-8.0); Neut # (Auto) 3.2 th/mm3 (1.8-7.7); Platelet Count 148 th/mm3 (150-450); Red Blood Count 4.37 mil/mm3 (4.50-5.90); Red Cell Distribution Width 13.9 % (11.6-17.2); White Blood Count 5.9 th/mm3 (4.0-11.0)
--- NOTE | 2017-10-06 20:19 | CT ---
EXAM DATE: 10/06/2017 7:52 PM EDT AGE/SEX: 62 years / Male INDICATIONS: Working in head patient blacked out CLINICAL DATA: This is the patient's initial encounter. Patient reports that signs and symptoms have been present for 1 day and indicates a pain score of 5/10. MEDICAL/SURGICAL HISTORY: Cardiovascular disease. Hypertension. Pacemaker. RADIATION DOSE: 66.34 CTDI (mGy) COMPARISON: No prior exams available for comparison. TECHNIQUE: CT of the head without contrast. Using automated exposure control and adjustment of the mA and/or kV according to patient size, radiation dose was kept as low as reasonably achievable to ob tain optimal diagnostic quality images. DICOM format image data is available electronically for revi ew and comparison. FINDINGS: Cerebrum: The ventricles are normal for age. No evidence of midline shift, mass lesion, hemorrhage or acute infarction. No extraaxial fluid collections are seen. Posterior Fossa: The cerebellum and brainstem are intact. The 4th ventricle is midline. The cerebe llopontine angle is unremarkable. Extracranial: The visualized portion of the orbits is intact. Small retention cysts in both maxillar y antra. Skull: The calvaria is intact. No evidence of skull fracture. CONCLUSION: 1. Mild chronic sinusitis with small retention cysts in both maxillary antra. 2. Otherwise negative. No acute intracranial process, trauma or fracture to explain current clinical symptoms. . Electronically signed by: Luis M Candelaria MD 10/06/2017 8:18 PM EDT
[2017-10-06 20:27] LABS: Albumin 3.6 g/dL (3.4-5.0); Anion Gap 9 meq/L (5-15); Aspartate Aminotransferase 35 U/L (15-37); Blood Urea Nitrogen 16 mg/dL (7-18); Calcium 8.6 mg/dL (8.5-10.1); Carbon Dioxide 24.9 meq/L (21.0-32.0); Chloride 106 meq/L (98-107); Glomerular Filtration Rate 45 mL/min (>89); Glucose,Random 224 mg/dL (74-106); Magnesium 1.9 mg/dL (1.5-2.5); Potassium 3.7 meq/L (3.5-5.1); Sodium 140 meq/L (136-145)
[2017-10-06 20:28] LABS: Alanine Aminotransferase 55 U/L (12-78)
[2017-10-06 20:32] LABS: Alkaline Phosphatase 56 U/L (45-117); Total Protein 6.9 g/dL (6.4-8.2)
[2017-10-06 20:40] LABS: D-Dimer 0.31 mg/L FEU (0.00-0.50)
[2017-10-06 20:42] LABS: Prothrombin Time 10.4 sec (9.8-11.6)
[2017-10-06] MEDS ORDERED: Dextrose 50% in Water 50 ML Vial IV.PUSH PRN (21:34)
[2017-10-06] MEDS ORDERED: Temazepam 15 MG Capsule PO PRN (21:35)
[2017-10-06] MEDS ORDERED: Acetaminophen 325 MG Tablet PO PRN (21:35)
[2017-10-06] MEDS ORDERED: Bisacodyl 10 MG Supp RECTAL PRN (21:35)
[2017-10-06] MEDS ORDERED: Morphine Inj 4 MG/ML Vial IV.PUSH PRN (21:36)
--- NOTE | 2017-10-06 21:37 | P.HPIM ---
History of Present Illness Primary Care Physician: Deric Nixon History of Present Illness: This is a 62-year-old male with PMH of HTN, CHF (Echo 07/12/2017 with EF 45-50%) , h/o Pacemaker ([employer]), h/o A-fib on Pradaxa and DM who was brought to the ER by EMS after syncopal event. Pt states he had dropped his friend off and while he was getting back into his van, he had sudden syncopal event. Reports dizziness/lightheadedness prior to syncope. Notes h/o similar symptoms several years ago but "never this bad". Marciano chest pain or SOB. Follows w/ [facility] in [place], Dr. Laguna, states he is scheduled for Echo, Stress Test and Pacemaker Interrogation in the next few weeks. On arrival, BP 139/68, HR 80, O2 sat 94% on RA. CBC unremarkable except for platelets 148, previously 139 on 07/10/17. INR 1.0 per creatinine 1.57, previously 1.32 on 07/11. CT Head with mild chronic sinusitis. CXR with compensated cardiomegaly no acute infiltrate. Knee X-ray earlier osteoarthritic changes, no acute fracture or effusion. - Diagnosis (1) Syncope (2) Renal insufficiency (3) DM (diabetes mellitus) (4) CHF (congestive heart failure) Review of Systems PAST FAMILY HISTORY: Reviewed positive for DM. All other systems reviewed negative except as stated [facility] - History History Provided By: Patient, Manager Functional / EMT - Medical History Medical History: Medical History (Last Reviewed 10/06/17 @ 19:37 by Maicol Carrero DO) Hx of cardiac pacemaker Hypertension - Surgical History Surgical History: Surgical History (Last Reviewed 10/06/17 @ 19:37 by Maicol Carrero DO) No history of previous surgery - Tobacco History Second Hand Smoke Exposure: Yes Tobacco Use In Past 30 Days: Yes Smoking Status: Current every day smoker Tobacco Type: Cigars - Alcohol History How Often Do You Have a Drink Containing Alcohol: 2 to 3 times a week - Substance Use History Substance History: No History of Abuse - Travel History Recent Travel in the [place] Within the Last 8 Weeks: No Recent Travel Out of the Country Within the Last 8 Weeks: No - Immunization History Tetanus Immunization: <5 Years Medications and Allergies Active Medications: Active Medications Sodium Chloride (Ns Flush) 2 ml IV.FLUSH UNSCH PRN PRN Reason: FLUSH AFTER USING IV ACCESS Allergies Allergy/AdvReac Type Severity Reaction Status Date / Time No Known Allergies Allergy Verified 10/06/17 19:24 Home Medications Medication Instructions Recorded Confirmed Type clonidine HCl 0.1 mg PO DAILY 10/06/17 10/06/17 History dabigatran etexilate [Pradaxa] 75 mg PO BID 10/06/17 10/06/17 History furosemide [Lasix] 20 mg PO DAILY 10/06/17 10/06/17 History metformin 1,000 mg PO BID 10/06/17 10/06/17 History valsartan 160 mg PO DAILY 10/06/17 10/06/17 History Exam Vital signs: Vital Signs 10/06/17 19:14 10/06/17 19:22 10/06/17 19:44 Pulse Rate 80 Respiratory Rate 20 Blood Pressure 139/68 137/63 Pulse Oximetry 94 L 98 97 10/06/17 20:51 Pulse Rate 79 Respiratory Rate 18 Blood Pressure 124/60 Pulse Oximetry 99 Intake & Output 10/06/17 10/06/17 10/07/17 06:59 18:59 06:59 Weight 122.47 kg Narrative: PE: GENERAL: Very pleasant middle-aged white male in no acute distress. HEENT: PERRLA, EOMI. No scleral icterus or conjunctival pallor. No lid lag or facial droop. CARDIOVASCULAR: Regular rate and rhythm. No obvious murmurs to auscultation. No chest tenderness to palpation. RESPIRATORY: No obvious rhonchi or wheezing. Clear to auscultation. Breath sounds equal bilaterally. GASTROINTESTINAL: Abdomen soft, non-tender, nondistended. BS normal. MUSCULOSKELETAL: Extremities without clubbing, cyanosis, or edema. No obvious deformities. Superficial laceration left knee, tenderness to palpation NEUROLOGICAL: Awake, alert and oriented x4. No focal neurologic deficits. Moving both upper and lower extremities spontaneously. Results - Labs CBC & Chem 7: 10/06/17 19:29 10/06/17 19:29 Labs: Short CBC 10/06/17 Range/Units 19:29 WBC 5.9 (4.0-11.0) th/mm3 Hgb 13.6 (13.0-17.0) gm/dL Hct 40.7 (39.0-51.0) % Plt Count 148 L (150-450) th/mm3 BMP 10/06/17 19:29 Sodium 140 Potassium 3.7 Chloride 106 Carbon Dioxide 24.9 BUN 16 Creatinine 1.57 H Calcium 8.6 Cardiac Enzymes 10/06/17 Range/Units 19:29 Troponin I Less than 0.02 L (0.02-0.05) ng/mL Liver Function 10/06/17 Range/Units 19:29 Total Bilirubin 0.5 (0.2-1.0) mg/dL AST 35 (15-37) U/L ALT 55 (12-78) U/L Alkaline Phosphatase 56 (45-117) U/L Albumin 3.6 (3.4-5.0) g/dL - Imaging Impressions Chest X-Ray 10/06/17 19:26 CONCLUSION: 1. Compensated cardiomegaly. 2. No acute infiltrate. Head CT 10/06/17 19:26 CONCLUSION: 1. Mild chronic sinusitis with small retention cysts in both maxillary antra. 2. Otherwise negative. No acute intracranial process, trauma or fracture to explain current clinical symptoms. . Knee X-Ray 10/06/17 19:37 CONCLUSION: 1. Early osteoarthritic changes with some loss of the medial tibiofemoral joint space. 2. No fracture or effusion. Caprini VTE Risk Assessment Caprini VTE Risk Assessment: Moderate/High Risk (score >= 2) Caprini Risk Assessment Model: Point Value = 1 Point Value = 2 Point Value = 3 Point Value = 5 Age 41-60 Minor surgery BMI > 25 kg/m2 Swollen legs Varicose veins or History of unexplained or recurrent spontaneous Oral contraceptives or hormone replacement Sepsis (< 1 month) Serious lung disease, including pneumonia (< 1 month) Abnormal pulmonary function Acute myocardial infarction Congestive heart failure (< 1 month) History of inflammatory bowel disease Medical patient at bed rest Age 61-74 Arthroscopic surgery Major open surgery (> 45 min) Laparoscopic surgery (> 45 min) Malignancy Confined to bed (> 72 hours) Immobilizing plaster cast Central venous access Age >= 75 History of VTE Family history of VTE Factor V Leiden Prothrombin [id number] Lupus anticoagulant Anticardiolipin antibodies Elevated serum homocysteine Heparin-induced thrombocytopenia Other congenital or acquired thrombophilia Stroke (< 1 month) Elective arthroplasty Hip, pelvis, or leg fracture Acute spinal cord injury (< 1 month) Prophylaxis Regimen: Total Risk Factor Score Risk Level Prophylaxis Regimen 0-1 Low Early ambulation 2 Moderate Order ONE of the following: *Sequential Compression Device (SCD) *Heparin 5000 units SQ BID 3-4 Higher Order ONE of the following medications: *Heparin 5000 units SQ TID *Enoxaparin/Lovenox 40 mg SQ daily (WT < 150 kg, CrCl > 30 mL/min) *Enoxaparin/Lovenox 30 mg SQ daily (WT < 150 kg, CrCl > 10-29 mL/min) *Enoxaparin/Lovenox 30 mg SQ BID (WT < 150 kg, CrCl > 30 mL/min) AND/OR *Sequential Compression Device (SCD) 5 or more Highest Order ONE of the following medications: *Heparin 5000 units SQ TID (Preferred with Epidurals) *Enoxaparin/Lovenox 40 mg SQ daily (WT < 150 kg, CrCl > 30 mL/min) *Enoxaparin/Lovenox 30 mg SQ daily (WT < 150 kg, CrCl > 10-29 mL/min) *Enoxaparin/Lovenox 30 mg SQ BID (WT < 150 kg, CrCl > 30 mL/min) AND *Sequential Compression Device (SCD) Assessment and Plan - Assessment (1) Syncope Code(s): R55 - Syncope and collapse Status: Acute (2) Renal insufficiency Code(s): N28.9 - Disorder of kidney and ureter, unspecified Status: Acute (3) DM (diabetes mellitus) Code(s): E11.9 - Type 2 diabetes mellitus without complications Status: Acute (4) CHF (congestive heart failure) Code(s): I50.9 - Heart failure, unspecified Status: Acute - Plan A/P: 1. Syncope: acute syncopal event, possibly vasovagal from dehydration, CT Head w/ no acute findings, images reviewed. Initial trop negative, will check serial cardiac enzymes to r/o underlying ischemia. Telemetry. Check Echo to eval for valvular abnormality/worsening cardiomyopathy. Interrogate Pacemaker. 2. Renal Insufficiency: Acute on Chronic. Creatinine 1.57, previously 1.48 on 07/25/2017. IVF for hydration, caution with CHF. Monitor I/O, repeat labs in am. 3. CHF: Chronic. Systolic. Echo 07/12/17 w/ EF 45-50%, resume home medications, monitor I/O. 4. DM: Sliding scale w/ Accu-Cheks. Hold Metformin for now. 5. DVT Prophylaxis: Resume home Pradaxa 6. Social work for d/c planning as needed 7. Case discussed w/ ER physician at length, labs/records/imaging reviewed by me.
[2017-10-07 02:04] LABS: Bilirubin,Urine Negative (Negative); Clarity,Urine Clear (Clear); Color,Urine Straw (Yellw/Straw); Glucose,Urine (UA) 150 mg/dL (Negative); Leukocyte Esterase,Urine Negative (Negative); Mucus,Urine Few /lpf (Occasional); Nitrite,Urine Negative (Negative); Specific Gravity,Urine 1.006 (1.002-1.035)
[2017-10-07 07:46] LABS: Baso % (Auto) 0.6 % (0.0-2.0); Eos % (Auto) 0.8 % (0.0-4.0); Hematocrit 40.1 % (39.0-51.0); Hemoglobin 13.5 gm/dL (13.0-17.0); Lymph # (Auto) 1.8 th/mm3 (1.0-4.8); Lymph % (Auto) 31.4 % (9.0-44.0); Mean Corpuscular HGB Conc 33.7 % (32.0-36.0); Mean Corpuscular Hemoglobin 31.4 pg (27.0-34.0); Mean Corpuscular Volume 93.1 fL (80.0-100.0); Mean Platelet Volume 8.2 fL (7.0-11.0); Mono # (Auto) 0.5 th/mm3 (0.0-0.9); Mono % (Auto) 9.4 % (0.0-8.0); Neut # (Auto) 3.3 th/mm3 (1.8-7.7); Neut % (Auto) 57.8 % (16.0-70.0); Platelet Count 127 th/mm3 (150-450); Red Blood Count 4.31 mil/mm3 (4.50-5.90); Red Cell Distribution Width 13.7 % (11.6-17.2); White Blood Count 5.6 th/mm3 (4.0-11.0)
[2017-10-07] MEDS: Insulin NovoLOG Aspart Correctional Sugar Inj SQ SCH ×2 (07:51→16:17)
[2017-10-07 08:24] LABS: Alanine Aminotransferase 52 U/L (12-78); Albumin 3.7 g/dL (3.4-5.0); Alkaline Phosphatase 57 U/L (45-117); Anion Gap 6 meq/L (5-15); Aspartate Aminotransferase 26 U/L (15-37); Blood Urea Nitrogen 15 mg/dL (7-18); Calcium 8.8 mg/dL (8.5-10.1); Carbon Dioxide 27.7 meq/L (21.0-32.0); Chloride 107 meq/L (98-107); Glomerular Filtration Rate 61 mL/min (>89); Glucose,Random 104 mg/dL (74-106); Sodium 141 meq/L (136-145)
[2017-10-07] MEDS ORDERED: Heparin - SQ 10,000 UNITS/ML Vial SQ SCH (09:00)
[2017-10-07] MEDS ORDERED: Senna/Docusate Sodium 8.6/50 MG Tablet PO SCH (09:00)
--- NOTE | 2017-10-07 10:36 | US ---
EXAM DATE: 10/07/2017 10:29 AM EDT AGE/SEX: 62 years / Male INDICATIONS: Syncope. CLINICAL DATA: This is the patient's initial encounter. Patient reports that signs and symptoms have been present for 1 day and indicates a pain score of 0/10. MEDICAL/SURGICAL HISTORY: Hypertension. Pacemaker. COMPARISON: No prior exams available for comparison. VELOCITY PARAMETERS: ICA/CCA Ratio: Right 1.3 , Left 0.71 ICA: Right 111 cm/sec, Left 97 cm/sec CCA: Right 83 cm/sec, Left 135 cm/sec ECA: Right 103 cm/sec, Left 87 cm/sec Vertebral: Right 61 cm/sec antegrade, Left 73 cm/sec antegrade FINDINGS: Right Carotid: No significant plaque is visualized.The waveforms are within normal limits. Left Carotid: No significant plaque is visualized. The waveforms are within normal limits. Other: None. CONCLUSION: 1. Right Internal Carotid Artery: No significant stenosis or atherosclerotic plaque is visualized. 2. Left Internal Carotid Artery: No significant stenosis or atherosclerotic plaque is visualized. Electronically signed by: Tomi Kwok MD 10/07/2017 10:34 AM EDT
--- NOTE | 2017-10-07 12:27 | ECG ---
Date Performed: 10/06/2017 Time Performed: 19:15:51 PTAGE: 62 years EK% ventriuclar pacing CLINICAL CORRELATION NEEDED ABNORMAL RHYTHM ECG NO PREVIOUS TRACING DOCTOR: Juan David Lewis Interpretating Date/Time 10/07/2017 12:25:59
--- NOTE | 2017-10-07 12:54 | ECHRPT ---
Indication: CARDIOMYOPATHY CONCLUSIONS Normal left ventricular size. Mild concentric left ventricular hypertrophy. The left ventricular systolic function is hyperdynamic with an estimated ejection fraction in the ra nge of 65- 70%. Mild mitral valve regurgitation. There is mild tricuspid valve regurgitation. The estimated pulmonary arterial pressure is 35.2 mmHg. BP: / HR: Rhythm: Sinus MEASUREMENTS (Male / Female) Normal Values Technical Quality:Fair 2D ECHO LV Diastolic Diameter PLAX 5.8 cm 4.2 - 5.9 / 3.9 - 5.3 cm LV Systolic Diameter PLAX 3.7 cm IVS Diastolic Thickness 1.2 cm 0.6 - 1.0 / 0.6 - 0.9 cm LVPW Diastolic Thickness 1.2 cm 0.6 - 1.0 / 0.6 - 0.9 cm LV Relative Wall Thickness 0.4 RV Internal Dim ED PLAX 2.6 cm LVOT Diameter 2.0 cm Aortic Root Diameter 2.8 cm LA Systolic Diameter LX 4.6 cm 3.0 - 4.0 / 2.7 - 3.8 cm M-MODE AV Cusp Separation MM 2.0 cm DOPPLER AV Peak Velocity 110.0 cm/s AV Peak Gradient 4.8 mmHg AV Mean Gradient 3.0 mmHg AV Velocity Time Integral 18.2 cm LVOT Peak Velocity 59.2 cm/s LVOT Peak Gradient 1.4 mmHg LVOT Velocity Time Integral 12.2 cm AV Area Cont Eq vti 2.1 cm AV Area Cont Eq pk 1.7 cm Mitral E Point Velocity 133.3 cm/s Mitral A Point Velocity 33.6 cm/s Mitral E to A Ratio 4.0 LV E' Lateral Velocity 3.5 cm/s Mitral E to LV E' Lateral Ratio 38.0 LV E' Septal Velocity 4.9 cm/s Mitral E to LV E' Septal Ratio 27.4 TR Peak Velocity 251.0 cm/s TR Peak Gradient 25.2 mmHg Right Atrial Pressure 10.0 mmHg Pulmonary Artery Systolic Pressu 35.2 mmHg Right Ventricular Systolic Press 35.2 mmHg PV Peak Velocity 66.2 cm/s PV Peak Gradient 1.8 mmHg FINDINGS LEFT VENTRICLE Normal left ventricular size. Mild concentric left ventricular hypertrophy. The left ventricular systolic function is hyperdynamic with an estimated ejection fraction in the ra nge of 65- 70%. RIGHT VENTRICLE Normal right ventricular size and systolic function. LEFT ATRIUM The left atrial size is normal. RIGHT ATRIUM The right atrial size is normal. ATRIAL SEPTUM No atrial level shunt is demonstrated by color flow Doppler interrogation. AORTA The aortic root and proximal ascending aorta are normal in size on limited imaging. MITRAL VALVE Mild mitral valve regurgitation. AORTIC VALVE Trileaflet aortic valve. No aortic valve stenosis or regurgitation. TRICUSPID VALVE There is mild tricuspid valve regurgitation. The estimated pulmonary arterial pressure is 35.2 mmHg. PULMONARY VALVE No pulmonary valve regurgitation or stenosis. VESSELS The inferior vena cava was not well visualized. PERICARDIUM No pericardial effusion. Sunny Zeng MD, FACC (Electronically Signed) Final Date:07 October 2017 12:53
--- NOTE | 2017-10-07 15:23 | P.DS ---
Date of admission: 10/06/17 21:35 Primary care physician: Deric Nixon Brief History from admission: This is a 62-year-old male with PMH of HTN, CHF (Echo 07/12/2017 with EF 45-50%) , h/o Pacemaker ([employer]), h/o A-fib on Pradaxa and DM who was brought to the ER by EMS after syncopal event. Pt states he had dropped his friend off and while he was getting back into his van, he had sudden syncopal event. Reports dizziness/lightheadedness prior to syncope. Notes h/o similar symptoms several years ago but "never this bad". Marciano chest pain or SOB. Follows w/ [facility] in [place], Dr. Laguna, states he is scheduled for Echo, Stress Test and Pacemaker Interrogation in the next few weeks. On arrival, BP 139/68, HR 80, O2 sat 94% on RA. CBC unremarkable except for platelets 148, previously 139 on 07/10/17. INR 1.0 per creatinine 1.57, previously 1.32 on 07/11. CT Head with mild chronic sinusitis. CXR with compensated cardiomegaly no acute infiltrate. Knee X-ray earlier osteoarthritic changes, no acute fracture or effusion. DS: Summary Hospital Course: Mr. Carrasquillo is a 62-year-old male. He is admitted after having a syncopal-like episode. He says this occurred after prolonged exposure to heat with lots of sweating. Etiology may be related to heat exhaustion as he never fully lost consciousness and the episode of weakness and dysphoria lasted about an hour prior to coming to the ER. He has returned to baseline overnight. Syncopal workup is negative including carotid ultrasound and a cardiogram. He is medically stable and cleared for discharge at this time. He is advised to avoid the heat for at least 2 days. - Time Spent with Patient Total time spent providing and/or coordinating discharge services: Less than 30 minutes - Quality: VTE Deep Vein Thrombosis/Pulmonary Embolism Present on Admission: No Exam Vital signs: Vital Signs 10/06/17 19:14 10/06/17 19:22 10/06/17 19:44 Temperature Pulse Rate 80 Respiratory Rate 20 Blood Pressure 139/68 137/63 Pulse Oximetry 94 L 98 97 10/06/17 20:51 10/06/17 22:04 10/06/17 23:29 Temperature 98.7 F Pulse Rate 79 81 Respiratory Rate 18 22 Blood Pressure 124/60 152/82 H Pulse Oximetry 99 100 96 10/06/17 23:39 10/07/17 04:00 10/07/17 07:28 Temperature 97.6 F Pulse Rate 80 80 Respiratory Rate 22 16 Blood Pressure 134/86 165/89 H Pulse Oximetry 96 99 97 10/07/17 08:00 10/07/17 09:00 10/07/17 11:56 Temperature 97.6 F Pulse Rate 80 80 Respiratory Rate 16 Blood Pressure 165/87 H Pulse Oximetry 97 97 Intake & Output 10/06/17 10/07/17 10/07/17 18:59 06:59 18:59 Intake Total 240 / 240 720 / 720 Output Total 1000 / 1000 Balance 240 / 240 -280 / -280 Weight 122.47 kg Intake: Oral 240 / 240 720 / 720 Output: Urine 1000 / 1000 Results Procedures completed during hospitalization: none Labs on day of discharge: Labs from last 24 hours 10/07/17 10/07/17 10/07/17 11:58 07:49 05:55 WBC RBC Hgb Hct MCV MCH MCHC RDW Plt Count MPV Neut % (Auto) Lymph % (Auto) Clinton % (Auto) Eos % (Auto) Baso % (Auto) Neut # (Auto) Lymph # (Auto) Clinton # (Auto) Eos # (Auto) Baso # (Auto) WBC Differential Differential Comment PT INR APTT D-Dimer Quant (PE/DVT) Sodium Potassium Chloride Carbon Dioxide Anion Gap BUN Creatinine Estimated GFR POC Glucose 137 H 136 H Random Glucose Calcium Magnesium Total Bilirubin AST ALT Alkaline Phosphatase Troponin I 0.02 B-Natriuretic Peptide Total Protein Albumin Urine Color Urine Clarity Urine pH Ur Specific [place] Urine Protein Urine Glucose (UA) Urine Ketones Urine Occult Blood Urine Nitrate Urine Bilirubin Urine Urobilinogen Ur Leukocyte Esterase Urine WBC Urine Mucus Micro UA Comment Urine Culture Comments 10/07/17 10/07/17 10/07/17 05:55 05:55 01:52 WBC 5.6 RBC 4.31 L Hgb 13.5 Hct 40.1 MCV 93.1 MCH 31.4 MCHC 33.7 RDW 13.7 Plt Count 127 L MPV 8.2 Neut % (Auto) 57.8 Lymph % (Auto) 31.4 Clinton % (Auto) 9.4 H Eos % (Auto) 0.8 Baso % (Auto) 0.6 Neut # (Auto) 3.3 Lymph # (Auto) 1.8 Clinton # (Auto) 0.5 Eos # (Auto) 0.0 Baso # (Auto) 0.0 WBC Differential . Differential Comment Auto diff final PT INR APTT D-Dimer Quant (PE/DVT) Sodium 141 Potassium 4.0 Chloride 107 Carbon Dioxide 27.7 Anion Gap 6 BUN 15 Creatinine 1.20 Estimated GFR 61 L POC Glucose Random Glucose 104 D Calcium 8.8 Magnesium Total Bilirubin 0.8 AST 26 ALT 52 Alkaline Phosphatase 57 Troponin I B-Natriuretic Peptide Total Protein 7.0 Albumin 3.7 Urine Color Straw Urine Clarity Clear Urine pH 6.0 Ur Specific [place] 1.006 Urine Protein Negative Urine Glucose (UA) 150 H Urine Ketones Negative Urine Occult Blood Negative Urine Nitrate Negative Urine Bilirubin Negative Urine Urobilinogen Less than 2 Ur Leukocyte Esterase Negative Urine WBC Less than 1 Urine Mucus Few H Micro UA Comment Culture not ind Urine Culture Comments Culture not ind 10/07/17 10/06/17 10/06/17 00:57 23:31 19:29 WBC RBC Hgb Hct MCV MCH MCHC RDW Plt Count MPV Neut % (Auto) Lymph % (Auto) Clinton % (Auto) Eos % (Auto) Baso % (Auto) Neut # (Auto) Lymph # (Auto) Clinton # (Auto) Eos # (Auto) Baso # (Auto) WBC Differential Differential Comment PT INR APTT D-Dimer Quant (PE/DVT) Sodium Potassium Chloride Carbon Dioxide Anion Gap BUN Creatinine Estimated GFR POC Glucose 233 H Random Glucose Calcium Magnesium Total Bilirubin AST ALT Alkaline Phosphatase Troponin I Less than 0.02 L B-Natriuretic Peptide 97 Total Protein Albumin Urine Color Urine Clarity Urine pH Ur Specific [place] Urine Protein Urine Glucose (UA) Urine Ketones Urine Occult Blood Urine Nitrate Urine Bilirubin Urine Urobilinogen Ur Leukocyte Esterase Urine WBC Urine Mucus Micro UA Comment Urine Culture Comments 10/06/17 10/06/17 10/06/17 19:29 19:29 19:29 WBC 5.9 RBC 4.37 L Hgb 13.6 Hct 40.7 MCV 93.2 MCH 31.0 MCHC 33.3 RDW 13.9 Plt Count 148 L MPV 8.3 Neut % (Auto) 55.0 Lymph % (Auto) 32.6 Clinton % (Auto) 10.5 H Eos % (Auto) 1.1 Baso % (Auto) 0.8 Neut # (Auto) 3.2 Lymph # (Auto) 1.9 Clinton # (Auto) 0.6 Eos # (Auto) 0.1 Baso # (Auto) 0.0 WBC Differential . Differential Comment Auto diff final PT 10.4 INR 1.0 APTT 23.0 L D-Dimer Quant (PE/DVT) 0.31 Sodium 140 Potassium 3.7 Chloride 106 Carbon Dioxide 24.9 Anion Gap 9 BUN 16 Creatinine 1.57 H Estimated GFR 45 L POC Glucose Random Glucose 224 H Calcium 8.6 Magnesium 1.9 Total Bilirubin 0.5 AST 35 ALT 55 Alkaline Phosphatase 56 Troponin I Less than 0.02 L B-Natriuretic Peptide Total Protein 6.9 Albumin 3.6 Urine Color Urine Clarity Urine pH Ur Specific [place] Urine Protein Urine Glucose (UA) Urine Ketones Urine Occult Blood Urine Nitrate Urine Bilirubin Urine Urobilinogen Ur Leukocyte Esterase Urine WBC Urine Mucus Micro UA Comment Urine Culture Comments - Impressions ITS Impressions Chest X-Ray 10/06/17 19:26 CONCLUSION: 1. Compensated cardiomegaly. 2. No acute infiltrate. Head CT 10/06/17 19:26 CONCLUSION: 1. Mild chronic sinusitis with small retention cysts in both maxillary antra. 2. Otherwise negative. No acute intracranial process, trauma or fracture to explain current clinical symptoms. . Knee X-Ray 10/06/17 19:37 CONCLUSION: 1. Early osteoarthritic changes with some loss of the medial tibiofemoral joint space. 2. No fracture or effusion. Carotid Doppler Study 10/07/17 00:00 CONCLUSION: 1. Right Internal Carotid Artery: No significant stenosis or atherosclerotic plaque is visualized. 2. Left Internal Carotid Artery: No significant stenosis or atherosclerotic plaque is visualized. Discharge Plan - Discharge Disposition Patient Disposition: 01 Discharge Home - Discharge Condition Condition: Stable - Discharge Order Discharge Orders: Discharge Order (Routine); Ordered 10/07/17 Ordered By: Tomi Paris - Discharge Details Anticipated Discharge Date: 10/07/17 - Physicians Team Primary Care Provider: Deric Nixon Attending Provider: Tomi Paris Other Providers: Prem Thorpea
== END 2017-10-07 18:51 | disposition home or self-care (01) ==
LOC: NEPFCDU 19:10 → NEPC 19:10 → INTOOBSV 21:35 → NEDA 21:58 → NEPFCDU 23:08
PROVIDERS: ADMIT Hospitalist; ATTEND Hospitalist
DX: I48.91 Unspecified atrial fibrillation; M17.12 Unilateral primary osteoarthritis, left knee; I13.0 Hypertensive heart and chronic kidney disease with heart failure and stage 1 through stage 4 chronic kidney disease, or unspecified chronic kidney disease; Z79.84 Long term (current) use of oral hypoglycemic drugs; I50.9 Heart failure, unspecified; F17.200 Nicotine dependence, unspecified, uncomplicated; N18.9 Chronic kidney disease, unspecified; J32.9 Chronic sinusitis, unspecified; R55 Syncope and collapse; E11.22 Type 2 diabetes mellitus with diabetic chronic kidney disease; Z95.0 Presence of cardiac pacemaker